=== PATIENT | male | born 1990 | race Caucasian/White ===

== ENCOUNTER 2022-03-08 20:07 | Emergency (ER) | payer OTHER ==
[~2022-03-08] VITALS: Ht 175.3 cm; Wt 59.0 kg
== END 2022-03-08 21:12 | disposition home or self-care (01) ==
LOC: EDBD 20:07 → ER 20:07
DX: R11.2 Nausea with vomiting, unspecified (principal); J06.9 Acute upper respiratory infection, unspecified; R55 Syncope and collapse
CPT/HCPCS: A9270